=== PATIENT | female | born 1995 | race Caucasian/White ===

== ENCOUNTER 2018-01-28 23:15 | Emergency (ER) | payer MEDICAID ==
[~2018-01-28] VITALS: Ht 162.6 cm; Wt 72.6 kg
[2018-01-29 00:03] VITALS: Ht 162.6 cm; Wt 72.6 kg
[2018-01-29 07:25] VITALS: BP 92/64
== END 2018-01-29 07:25 | disposition home or self-care (01) ==
LOC: EDBD 23:15 → ED 23:15
DX: S00.83XA Contusion of other part of head, initial encounter (principal); S13.4XXA Sprain of ligaments of cervical spine, initial encounter; S46.919A Strain of unspecified muscle, fascia and tendon at shoulder and upper arm level, unspecified arm, initial encounter; Y04.8XXA Assault by other bodily force, initial encounter; Y93.89 Activity, other specified; Y92.89 Other specified places as the place of occurrence of the external cause; Y99.8 Other external cause status